=== PATIENT | male | born 1970 | race Caucasian/White ===

== ENCOUNTER 2017-10-29 06:00 | Day surgery (SDC) | payer OTHER ==
[~2017-10-29 06:00] MED LIST: AMOX1TAB12 PO; FLORAVANCE CAP1 EACH PO; LUNESTA2 MG; SYNTHROID50 MCG
== END 2017-10-29 11:20 | disposition home or self-care (01) ==
LOC: AMB-ENDOS 06:00
DX: K57.32 Diverticulitis of large intestine without perforation or abscess without bleeding (principal); K59.09 Other constipation

== ENCOUNTER 2018-02-01 08:14 | Emergency (ER) | payer OTHER ==
[~2018-02-01] VITALS: Ht 172.7 cm; Wt 86.2 kg
[2018-02-01] MEDS ORDERED: SYNTHROID50 MCG (08:45)
[2018-02-01] MEDS ORDERED: CLONAZEPAM2 M1 (08:45)
[2018-02-01] MEDS ORDERED: AMBIEN5 MG (08:46)
== END 2018-02-01 15:50 | disposition home or self-care (01) ==
LOC: ER 08:38
DX: K62.5 Hemorrhage of anus and rectum (principal)

== ENCOUNTER 2018-06-20 06:38 | Day surgery (SDC) | payer OTHER ==
[~2018-06-20 06:38] MED LIST changes: +AMBIEN5 MG; +CLONAZEPAM2 M1
== END 2018-06-20 11:34 | disposition home or self-care (01) ==
LOC: AMB-ENDOS 06:38
DX: D12.2 Benign neoplasm of ascending colon (principal)

== ENCOUNTER 2018-08-20 07:00 | Day surgery (SDC) | payer OTHER | END 2018-08-20 13:00 | disposition home or self-care (01) | LOC: ADM 07:00 → CIR.AMB 07:00 | DX: D17.0 Benign lipomatous neoplasm of skin and subcutaneous tissue of head, face and neck (principal) ==

== ENCOUNTER 2019-06-01 14:05 | Inpatient (IN) | payer OTHER ==
[~2019-06-01] VITALS: Ht 243.8 cm; Wt 5.0 kg
--- NOTE | 2019-06-01 14:10 | NUR ---
SE RECIBE PACIENTE EN AMBUALANCIA REFIERE DOLOR ABDOMINAL FUE TRANFERIDO DE METRO CHELE SE CRESENCIO S/V YSE UBIAC EN AREA DE OBSERVACION
--- NOTE | 2019-06-01 15:27 | NUR ---
SE ORIENTA A PTE SOBRE PROCESO DE VENOPUNCION, PATITO DE MUESTRAS, ADMINISTRACION DE MED IV PTE REFIERE ENTENDER INF RONNI. PTE REFIERE ENTENDER INF RONNI POR RN BANEGAS. SE ESPERA POR ESCOLTA PARA PASAR A K2 PARA INSERTAR NGT TO LIST.
--- NOTE | 2019-06-01 16:08 | NUR ---
SE ORIENTA A PTE SOBRE PROCESO DE INSERTAR NGT TO LIS EL CUAL SE INSERTA EN FOSA NASAL DERECHA EL MISMO SE ENCUENTRA PATENTE SE VERFICA POR RNBobby JARRETT EL CUAL SE ENCUENTRA PATENTE.
--- NOTE | 2019-06-02 | NUR ---
SE RECIBE PACIENTE DEL TURNO ANTERIOR ALERTA Y ORIENTADO X3 EN CAMA A 45 GRADOS, TIENE TUBO NASOGASTRICO EN FOSA NASAL DERECHA CONECTADO A SUCCION INTERMITENTE. TIENE AREA DE VENOPUNCION EN BRAZO DERECHO PATENTE Y LUIS DE EDEMA O ERITEMA, BAJANDO MEDICAMENTO ORDENADOS.
--- NOTE | 2019-06-02 07:10 | NUR ---
SE RECIBE PACIENTE ALERTA Y ORIENTADO EN LAS FABRICE ESFERAS EN CAMA BARANDAS ELEVADAS. SE OBSERVA VENOPUNCION EN ANTEBRAZO DERECHO LUIS DE EDEMA Y ENROJECIMIENTO BAJANDO 0.45%NSS AT 150ML/HR. NASOGASTRICO PATENTE DRENANDO 100ML SECRECION COLOR EUGENIE OSCURO. SE ORIENTA PACIENTE SOBRE PROCESOS LOS CUALES VERBALIZA ENTENDER. SE BRENNEN CON BARANDAS ELEVADAS Y TIMBRE ACCESIBLE.
--- NOTE | 2019-06-02 07:22 | NUR ---
SE ADMINISTRA DEMEROL 50MG IM WENDY ORDEN MEDICA EN GLUTEO DERECHO CUADRANTE SUPERIOR EXTERNO BAJO MEDIDAS ASEPTICAS. SE ORIENTA SOBRE MEDICACION VERBALIZA ENTENDER.
[2019-06-13] MEDS ORDERED: INTESTINEX680 M1 PO (10:27)
[2019-06-13] MEDS ORDERED: ULTRACET PO (10:28)
[2019-06-13] MEDS ORDERED: QUESTRAN PACKET4 GM PO (10:28)
[2019-06-13] MEDS ORDERED: HYOSCYAMINE0.125 M1 SL (10:30)
== END 2019-06-13 12:52 | disposition home or self-care (01) | DRG 329 ==
LOC: ER 14:05 → SEC-K 06-02 07:54 → SURH 06-02 07:54 → ICU 06-04 23:37 → SURH 06-08 11:26
PROVIDERS: ADMIT Surgery
PROC: 0T9B70Z Drainage of Bladder with Drainage Device, Via Natural or Artificial Opening (ICD-10-PCS; 2019-06-03)
PROC: 0DNB4ZZ Release Ileum, Percutaneous Endoscopic Approach (ICD-10-PCS; 2019-06-04)
PROC: 4A033R1 Measurement of Arterial Saturation, Peripheral, Percutaneous Approach (ICD-10-PCS; 2019-06-04)
PROC: 0DTH4ZZ Resection of Cecum, Percutaneous Endoscopic Approach (ICD-10-PCS; principal; 2019-06-04 18:45)
PROC: 0BH17EZ Insertion of Endotracheal Airway into Trachea, Via Natural or Artificial Opening (ICD-10-PCS; 2019-06-05)
PROC: 5A1945Z Respiratory Ventilation, 24-96 Consecutive Hours (ICD-10-PCS; 2019-06-05)
PROC: 02HV33Z Insertion of Infusion Device into Superior Vena Cava, Percutaneous Approach (ICD-10-PCS; 2019-06-05)
PROC: 0DH67UZ Insertion of Feeding Device into Stomach, Via Natural or Artificial Opening (ICD-10-PCS; 2019-06-06)
PROC: 3E0G76Z Introduction of Nutritional Substance into Upper GI, Via Natural or Artificial Opening (ICD-10-PCS; 2019-06-06)
DX: K57.01 Diverticulitis of small intestine with perforation and abscess with bleeding (principal); J95.822 Acute and chronic postprocedural respiratory failure; B37.1 Pulmonary candidiasis; A41.9 Sepsis, unspecified organism; K56.51 Intestinal adhesions [bands], with partial obstruction; E87.3 Alkalosis; E44.0 Moderate protein-calorie malnutrition; J95.89 Other postprocedural complications and disorders of respiratory system, not elsewhere classified; J98.11 Atelectasis; J90 Pleural effusion, not elsewhere classified; K63.89 Other specified diseases of intestine; E86.0 Dehydration; E87.8 Other disorders of electrolyte and fluid balance, not elsewhere classified; N39.8 Other specified disorders of urinary system; R59.0 Localized enlarged lymph nodes; E03.8 Other specified hypothyroidism; Z99.81 Dependence on supplemental oxygen

== ENCOUNTER 2019-12-29 23:33 | Emergency (ER) | payer OTHER ==
[~2019-12-29] VITALS: Ht 172.7 cm; Wt 86.2 kg
[~2019-12-29 23:33] MED LIST changes: +HYOSCYAMINE0.125 M1 SL; +INTESTINEX680 M1 PO; +QUESTRAN PACKET4 GM PO; +ULTRACET PO
[2019-12-29] MEDS ORDERED: CLONAZEPAM2 M1 (23:49)
[2019-12-29] MEDS ORDERED: LEVO-T50 MCG (23:50)
== END 2019-12-30 07:20 | disposition home or self-care (01) ==
LOC: ER 23:33
DX: R10.84 Generalized abdominal pain (principal); Z03.818 Encounter for observation for suspected exposure to other biological agents ruled out
CPT/HCPCS: 74177; Q9965

== ENCOUNTER 2020-01-03 20:11 | Inpatient (IN) | payer OTHER ==
[~2020-01-03] VITALS: Ht 172.7 cm; Wt 86.2 kg
[~2020-01-03 20:11] MED LIST changes: +LEVO-T50 MCG
[2020-01-05] MEDS ORDERED: ALLER-TEC10 MG PO (08:02)
[2020-01-05] MEDS ORDERED: CLARITIN10 MG PO (08:02)
[2020-01-09] MEDS ORDERED: POLY119PG PO (08:43)
== END 2020-01-09 15:07 | disposition home or self-care (01) | DRG 390 ==
LOC: ER 20:11 → SURG 01-04 11:06
PROVIDERS: ADMIT Surgery; ATTEND Surgery
PROC: 02HV33Z Insertion of Infusion Device into Superior Vena Cava, Percutaneous Approach (ICD-10-PCS; principal; 2020-01-04)
PROC: 3E0336Z Introduction of Nutritional Substance into Peripheral Vein, Percutaneous Approach (ICD-10-PCS; 2020-01-04)
PROC: 0DH67UZ Insertion of Feeding Device into Stomach, Via Natural or Artificial Opening (ICD-10-PCS; 2020-01-04)
PROC: 3E0G76Z Introduction of Nutritional Substance into Upper GI, Via Natural or Artificial Opening (ICD-10-PCS; 2020-01-04)
DX: K56.690 Other partial intestinal obstruction (principal)

== ENCOUNTER 2020-06-15 08:32 | Outpatient (CLI) | payer OTHER ==
[~2020-06-15 08:32] MED LIST changes: +ALLER-TEC10 MG PO; +CLARITIN10 MG PO; +POLY119PG PO
== END 2020-06-15 08:43 | disposition home or self-care (01) ==
LOC: RX STUDY 08:32
PROVIDERS: ATTEND Surgery
DX: K56.690 Other partial intestinal obstruction (principal); K57.30 Diverticulosis of large intestine without perforation or abscess without bleeding; K64.1 Second degree hemorrhoids; D12.2 Benign neoplasm of ascending colon

== ENCOUNTER 2021-04-06 06:53 | Inpatient (IN) | payer OTHER ==
[~2021-04-06] VITALS: Ht 172.7 cm; Wt 78.5 kg
[2021-04-06] MEDS ORDERED: XARELTO20 MG (07:24)
[2021-04-08] MEDS ORDERED: ESCITALOPRAM OX10 MG (10:29)
[2021-04-08] MEDS ORDERED: CHOLESTYRAMINE P4 GM (10:30)
[2021-04-08] MEDS ORDERED: METRONIDAZOLE500 MG (10:30)
[2021-04-08] MEDS ORDERED: LEVOFLOXACIN750 MG (10:30)
[2021-04-08] MEDS ORDERED: LETROZOLE2.5 MG (10:30)
[2021-04-08] MEDS ORDERED: GABAPENTIN300 M2 (10:30)
[2021-04-08] MEDS ORDERED: HYDROCORT-PRAMO30 G1 (10:30)
[2021-04-08] MEDS ORDERED: ARMOUR THYROID90 MG (10:30)
[2021-04-08] MEDS ORDERED: OFLOXACIN5 ML (10:31)
[2021-04-08] MEDS ORDERED: ZOLPIDEM TARTRA10 MG (10:31)
== END 2021-04-11 17:21 | disposition home or self-care (01) | DRG 390 ==
LOC: ER 06:53 → SURG 13:49 → SEC-K 13:49 → SURG 04-07 12:43
PROVIDERS: ADMIT Surgery; ATTEND Surgery
PROC: BW21YZZ Computerized Tomography (CT Scan) of Abdomen and Pelvis using Other Contrast (ICD-10-PCS; 2021-04-06)
PROC: C51BYZZ Planar Nuclear Medicine Imaging of Right Lower Extremity Veins using Other Radionuclide (ICD-10-PCS; principal; 2021-04-07)
DX: K56.600 Partial intestinal obstruction, unspecified as to cause (principal); G30.8 Other Alzheimer's disease; F02.80 Dementia in other diseases classified elsewhere, unspecified severity, without behavioral disturbance, psychotic disturbance, mood disturbance, and anxiety; K59.09 Other constipation; Z86.718 Personal history of other venous thrombosis and embolism; Z86.711 Personal history of pulmonary embolism; Z20.822 Contact with and (suspected) exposure to COVID-19

== ENCOUNTER 2021-05-09 06:45 | Inpatient (IN) | payer OTHER ==
[~2021-05-09] VITALS: Ht 172.7 cm; Wt 81.2 kg
[~2021-05-09 06:45] MED LIST changes: +ARMOUR THYROID90 MG; +CHOLESTYRAMINE P4 GM; +ESCITALOPRAM OX10 MG; +GABAPENTIN300 M2; +HYDROCORT-PRAMO30 G1; +LETROZOLE2.5 MG; +LEVOFLOXACIN750 MG; +METRONIDAZOLE500 MG; +OFLOXACIN5 ML; +XARELTO20 MG; +ZOLPIDEM TARTRA10 MG
[2021-05-10] MEDS ORDERED: PERCOCET 5-3251 EACH PO (09:29)
[2021-05-10] MEDS ORDERED: AMOX1TAB5 PO (09:30)
[2021-05-10] MEDS ORDERED: NEURONTIN300 MG PO (09:30)
[2021-05-10] MEDS ORDERED: INTESTINEX680 M1 PO (09:30)
== END 2021-05-10 13:16 | disposition home or self-care (01) | DRG 349 ==
LOC: ER 06:45 → O/R 07:46 → SURH 07:46 → SEC-K 07:46 → O/R 13:45 → SURH 18:52
PROVIDERS: ADMIT Surgery; ATTEND Surgery
PROC: 3E0F7SF Introduction of Other Gas into Respiratory Tract, Via Natural or Artificial Opening (ICD-10-PCS; 2021-05-09)
PROC: 0D8R3ZZ Division of Anal Sphincter, Percutaneous Approach (ICD-10-PCS; principal; 2021-05-09 13:00)
DX: K60.2 Anal fissure, unspecified (principal); K60.1 Chronic anal fissure; Z20.822 Contact with and (suspected) exposure to COVID-19; Z86.711 Personal history of pulmonary embolism

== ENCOUNTER 2021-07-12 00:09 | Inpatient (IN) | payer OTHER ==
[~2021-07-12] VITALS: Ht 172.7 cm; Wt 86.2 kg
[~2021-07-12 00:09] MED LIST changes: +AMOX1TAB5 PO; +NEURONTIN300 MG PO; +PERCOCET 5-3251 EACH PO
[2021-07-13] MEDS ORDERED: HYOSCYAMINE0.125 M1 SL (15:30)
== END 2021-07-13 16:52 | disposition home or self-care (01) | DRG 390 ==
LOC: ER 00:09 → SURG 07:59 → SEC-K 07:59 → SURG 11:03
PROVIDERS: ADMIT Surgery; ATTEND Surgery
PROC: BW21YZZ Computerized Tomography (CT Scan) of Abdomen and Pelvis using Other Contrast (ICD-10-PCS; principal; 2021-07-12)
DX: K56.690 Other partial intestinal obstruction (principal); R10.9 Unspecified abdominal pain; Z20.822 Contact with and (suspected) exposure to COVID-19; Z86.711 Personal history of pulmonary embolism; Z92.29 Personal history of other drug therapy

== ENCOUNTER 2022-01-15 02:52 | Inpatient (IN) | payer OTHER ==
[~2022-01-15] VITALS: Ht 172.7 cm; Wt 90.7 kg
--- NOTE | 2022-01-15 03:13 | NUR ---
PACIENTE ALERTA Y ORIENTADO X3. REFIERE VENIR POR DOLOR ABDOMINAL Y CONSTIPACION.
--- NOTE | 2022-01-15 05:50 | NUR ---
TX. OFRECIDO POR MIS. A. REYES QIUEN ORIENTA AL PACIENTE SOBRE EL TX. SE EXTRAEN MUESTRAS DE SORAYA BAJO MEDIDAS ASSEPTICAS SE ROTULA Y ENVIA AL LABORATORIO. CANALIZA Y ADMINISTRA MEDICAMENTO WENDY ORDEN MEDICA.
--- NOTE | 2022-01-15 15:30 | NUR ---
PTE ALERTA Y ORIENTADO X 3 ESFERAS EN COMPANIA DE FAMILIAR,EN VIN CON BARANDAS ELEVADAS,NO REFIERE DOLOR AL MOMENTO,AREA DE VENOPUNCION PATENTE Y LUIS DE EDEMA CON FLUIDOS DE MANTENIMIENTO,PENDIENTE A EVALUACION DE DR RICCI Y DR CHINCHILLA.
[2022-01-23] MEDS ORDERED: HYOSCYAMINE0.125 M1 SL (13:05)
[2022-01-23] MEDS ORDERED: ULTRAM50 MG PO (13:06)
[2022-01-23] MEDS ORDERED: INTESTINEX680 M1 PO (13:06)
== END 2022-01-23 14:59 | disposition home or self-care (01) | DRG 354 ==
LOC: ER 02:52 → SURH 22:49
PROVIDERS: ADMIT Surgery; ATTEND Surgery
PROC: BW21YZZ Computerized Tomography (CT Scan) of Abdomen and Pelvis using Other Contrast (ICD-10-PCS; 2022-01-15)
PROC: 02HV33Z Insertion of Infusion Device into Superior Vena Cava, Percutaneous Approach (ICD-10-PCS; 2022-01-17)
PROC: 3E0436Z Introduction of Nutritional Substance into Central Vein, Percutaneous Approach (ICD-10-PCS; 2022-01-17)
PROC: 0WUF4JZ Supplement Abdominal Wall with Synthetic Substitute, Percutaneous Endoscopic Approach (ICD-10-PCS; principal; 2022-01-18 19:30)
DX: K56.690 Other partial intestinal obstruction (principal); K43.6 Other and unspecified ventral hernia with obstruction, without gangrene; K91.89 Other postprocedural complications and disorders of digestive system; K42.9 Umbilical hernia without obstruction or gangrene; K66.0 Peritoneal adhesions (postprocedural) (postinfection); K59.09 Other constipation; R14.0 Abdominal distension (gaseous); Z86.718 Personal history of other venous thrombosis and embolism; Z86.711 Personal history of pulmonary embolism

== ENCOUNTER 2022-08-15 15:02 | Inpatient (IN) | payer OTHER ==
[~2022-08-15] VITALS: Ht 172.7 cm; Wt 86.2 kg
[~2022-08-15 15:02] MED LIST changes: +ULTRAM50 MG PO
--- NOTE | 2022-08-15 15:14 | NUR ---
SE RECIBE PTE ALERTA Y ORIENTADO X3 EL CUAL REFIERE VENIR POR DOLOR ABDOMINAL DESDE HACE 2 LR, PTE REFIERE QUE EL DOLOR ES EPIGASTRICO. PTE NO REFIERE NAUSEAS O VOMITOS AL MOMENTO. SE MIDEN S/V A PTE Y SE COLOCA EN AREA DE OBSERVACION.
--- NOTE | 2022-08-15 16:18 | NUR ---
PTE EVALUADO POR MD CLARKIEN ORDENA [place] MED SE EDUCA APTE SOBRE EL MISMO Y RFIER EENTENDER. SE EJECUTAN ORDENES BAJO MEDIDAS ACEPTICAS. PTE PEND A RESULTADOS DE LAB Y CT.
[2022-08-18] MEDS ORDERED: AMOX-CLAV 875-1 EACH PO (12:57)
[2022-08-18] MEDS ORDERED: LEVSIN/SL0.125 MG SL (12:58)
[2022-08-18] MEDS ORDERED: INTESTINEX680 M1 PO (12:59)
== END 2022-08-18 15:20 | disposition home or self-care (01) | DRG 394 ==
LOC: ER 15:02 → SURG 20:44
PROVIDERS: ADMIT Surgery; ATTEND Surgery
PROC: BW21ZZZ Computerized Tomography (CT Scan) of Abdomen and Pelvis (ICD-10-PCS; principal; 2022-08-15)
DX: K91.89 Other postprocedural complications and disorders of digestive system (principal); K56.7 Ileus, unspecified; K52.89 Other specified noninfective gastroenteritis and colitis; E86.0 Dehydration; E16.1 Other hypoglycemia

== ENCOUNTER 2024-09-22 21:21 | Inpatient (IN) | payer OTHER ==
[~2024-09-22] VITALS: Ht 172.7 cm; Wt 84.4 kg
[~2024-09-22 21:21] MED LIST changes: +AMOX-CLAV 875-1 EACH PO; +LEVSIN/SL0.125 MG SL
[2024-09-22] MEDS ORDERED: ABILIFY2 MG PO (22:38)
[2024-09-22] MEDS ORDERED: TRAZODONE HCL50 MG PO (22:38)
[2024-09-22] MEDS ORDERED: XARELTO20 MG PO (22:38)
[2024-09-22] MEDS ORDERED: CLONAZEPAM2 MG PO (22:38)
[2024-09-22] MEDS ORDERED: FAMOTIDINE/PF 20 MG in 0.9 % SODIUM CHLORIDE 8 ML IV PUSH STA (23:03)
[2024-09-22] MEDS ORDERED: ONDANSETRON HCL 2 MG/ML VIAL IV ONE (23:15)
[2024-09-22] MEDS ORDERED: DIATRIZOATE MEGLUMINE, SODIUM 30 ML BOTTLE PO ONE (23:15)
[2024-09-22] MEDS ORDERED: 0.9 % SODIUM CHLORIDE 1,000 ML IV SCH (23:15)
[2024-09-22] MEDS ORDERED: MORPHINE SULFATE 4 MG/ML VIAL IV ONE (23:15)
[2024-09-22] MEDS ORDERED: FAMOTIDINE/PF 20 MG/2 ML VIAL ONE (23:18)
[2024-09-22] MEDS ORDERED: ONDANSETRON HCL 2 MG/ML VIAL ONE (23:18)
[2024-09-22] MEDS ORDERED: DIATRIZOATE MEGLUMINE, SODIUM 30 ML BOTTLE ONE (23:18)
[2024-09-22 23:51] LABS: HEMATOCRIT 41.6 % (39.0-48.0); HEMOGLOBIN 13.9 g/dL (13-16.00); MEAN CELL VOLUME 90.9 fL (80.0-100.00); MEAN CORPUSCULAR HEMOGLOBIN 30.4 pg (27.00-32.0); MEAN CORPUSCULAR HGB CONC 33.4 g/dl (32.0-36.0); PLATELET COUNT 190 K/uL (150-450); RED BLOOD COUNT 4.58 M/uL (4.00-6.00); RED CELL DISTRIBUTION WIDTH 14.6 % (11.5-14.5)
[2024-09-23 01:21] LABS: ALBUMIN 4.5 gm/dL (3.4-5.0); BILIRUBIN TOTAL 0.71 mg/dL (0.3-1.2); CALCIUM 9.5 mg/dL (8.5-10.1); CREATININE SERUM 1.25 mg/dL (0.70-1.30); GFR 60.19; GLOBULINA 3.7 G/DL (2.4-3.5); POTASSIUM 3.94 mEq/L (3.5-5.1); TOTAL PROTEIN 8.2 gm/dL (6.4-8.2)
[2024-09-23 08:40] LABS: URINE APPEARANCE Clear; URINE BILIRRUBIN Negative (NEGATIVE); URINE BLOOD Negative; URINE COLOR Yellow; URINE GLUCOSE Negative (NEGATIVE); URINE LEUKOCYTE Negative; URINE NITRATE Negative; URINE PROTEIN Negative (NEGATIVE); URINE UROBILINOGEN 0.2 E.U./dl
[2024-09-23 08:47] LABS: URINE BACTERIA 7.3 uL (0.0-1933); URINE EPITHELIAL CELLS 3.4 uL (0.0-38.8); URINE RBC 4.7 uL (0.0-20.8); URINE WBC 6.4 uL (0.0-23.2)
[2024-09-23 08:52] LABS: URINE KETONE 40 (NEGATIVE)
[2024-09-23] MEDS ORDERED: ENOXAPARIN SODIUM 40 MG/0.4 ML SYRINGE SUBCUTANEO SCH (12:15)
[2024-09-23] MEDS ORDERED: KETOROLAC TROMETHAMINE 30 MG VIAL IV PRN (12:15)
[2024-09-23] MEDS ORDERED: ONDANSETRON HCL 2 MG/ML VIAL IV PRN (12:15)
[2024-09-23] MEDS ORDERED: 0.9 % SODIUM CHLORIDE 1,000 ML IV SCH (12:15)
[2024-09-23] MEDS ORDERED: KETOROLAC TROMETHAMINE 30 MG VIAL ONE (13:59)
[2024-09-23 15:29] VITALS: BP 116/78; O2SAT 99
[2024-09-23] MEDS ORDERED: METOCLOPRAMIDE HCL 5 MG/ML VIAL IV SCH (17:00)
[2024-09-23 18:00] VITALS: BP 114/70; O2SAT 97
[2024-09-23] MEDS ORDERED: CLONAZEPAM 1 MG TABLET PO SCH (21:00)
[2024-09-23] MEDS ORDERED: PATIENTS OWN MEDICATION (MEDICAMENTO EN PISO) PO SCH (21:00)
[2024-09-23] MEDS ORDERED: ENOXAPARIN SODIUM 80 MG/0.8 ML SYRINGE SUBCUTANEO SCH (21:00)
[2024-09-24 01:45] VITALS: BP 96/56; O2SAT 97
[2024-09-24 08:40] VITALS: BP 132/82
[2024-09-24] MEDS ORDERED: PANTOPRAZOLE SODIUM 40 MG/VIAL VIAL IV SCH (09:00)
[2024-09-24 09:45] LABS: COL EPI 114 SECONDS (82-175)
[2024-09-24 09:58] LABS: INR 1.09; PARTIAL THROMBOPLASTIN TIME 24.6 SECONDS (22.0-34.0); PROTHROMBIN TIME 11.8 SECONDS (9.0-11.5)
[2024-09-24] MEDS ORDERED: RINGERS SOLUTION,LACTATED 1,000 ML IV SCH (10:00)
[2024-09-24 10:08] LABS: ALBUMIN 3.2 gm/dL (3.4-5.0); CALCIUM 8.4 mg/dL (8.5-10.1); CREATININE SERUM 1.25 mg/dL (0.70-1.30); GFR 60.19; PHOSPHOROUS 2.2 mg/dL (2.5-4.9); POTASSIUM 4.11 mEq/L (3.5-5.1)
[2024-09-24 10:11] LABS: C-REACTIVE PROTEIN 2.08 MG/DL (0.00-0.29)
[2024-09-24 10:12] LABS: HEMATOCRIT 38.3 % (39.0-48.0); MEAN CORPUSCULAR HGB CONC 32.6 g/dl (32.0-36.0); PLATELET COUNT 152 K/uL (150-450); RED BLOOD COUNT 4.21 M/uL (4.00-6.00); RED CELL DISTRIBUTION WIDTH 14.8 % (11.5-14.5)
[2024-09-24 10:14] LABS: HEMOGLOBIN 12.5 g/dL (13-16.00); MEAN CORPUSCULAR HEMOGLOBIN 29.6 pg (27.00-32.0)
[2024-09-24] MEDS ORDERED: POTASSIUM PHOS,M-BASIC-D-BASIC 3 MM/ML VIAL IV NR (11:00)
[2024-09-24 18:27] VITALS: BP 145/73
[2024-09-25 04:45] VITALS: BP 106/66
[2024-09-25] MEDS ORDERED: AA 5 % NO.6/DEXTROSE 15 % 2,000 ML CENTRAL SCH (08:30)
[2024-09-25 09:28] VITALS: BP 116/75; O2SAT 98
[2024-09-25 18:32] VITALS: BP 154/83; O2SAT 98
[2024-09-25 21:49] VITALS: BP 128/73; O2SAT 97
[2024-09-26 01:12] VITALS: BP 100/61
[2024-09-26] MEDS ORDERED: RIVAROXABAN 20 MG TABLET PO SCH (09:00)
[2024-09-26 11:02] VITALS: BP 131/86; O2SAT 97
== END 2024-09-26 13:16 | disposition home or self-care (01) | DRG 390 ==
LOC: ER 21:23 → MEDJ 09-23 13:07 → SEC-K 09-23 13:07 → MEDJ 09-23 13:15
PROVIDERS: General Practice; Internal Medicine Geriatric Medicine; ADMIT Surgery; ATTEND Surgery
PROC: BW21ZZZ Computerized Tomography (CT Scan) of Abdomen and Pelvis (ICD-10-PCS; principal; 2024-09-22)
DX: K56.609 Unspecified intestinal obstruction, unspecified as to partial versus complete obstruction (principal)